=== PATIENT | female | born 1965 | race Caucasian/White ===

== ENCOUNTER 2023-01-17 08:01 | Outpatient (REF) | payer OTHER, SELFPAY ==
--- NOTE | ~2023-01-17 | US_ITS ---
EXAMINATION: US ABDOMEN COMPLETE CLINICAL INFORMATION: Right upper quadrant pain. COMPARISON: CT abdomen and pelvis 08/13/2022. Ultrasound kidneys and bladder 07/26/2022. Ultrasound kidneys 02/18/2022. TECHNIQUE: Real-time imaging of the abdominal viscera. FINDINGS: PANCREAS: Normal. ABDOMINAL AORTA: The proximal, mid, and distal segments are normal in caliber. INFERIOR VENA CAVA: Visualized portions are normal. LIVER: The liver is normal in size. The liver contour is normal. Parenchymal echogenicity is normal. There is no intrahepatic biliary duct dilatation seen. An echogenic mass measuring 1.1 cm is present in the right lobe of the liver consistent with a hemangioma. A 1.1 cm mass in the same location can be seen on the contrast-enhanced CT scan from [facility] performed on 12/20/2021 but it is not apparent on the 08/13/[address] scan. GALLBLADDER: Normal. The gallbladder is physiologically distended without evidence of stones, sludge, polyps, wall thickening or pericholecystic fluid. COMMON BILE DUCT: Normal in caliber measuring 0.5 cm in diameter. RIGHT KIDNEY: No hydronephrosis or focal parenchymal lesions. The kidney measures 9.6 cm in maximum dimension. LEFT KIDNEY: No hydronephrosis or focal parenchymal lesions. The kidney measures 9.8 cm in maximum dimension. There is a 9 mm echogenic focus seen at the lower pole of the left kidney consistent with a nonobstructing stone. 2 calculi were seen on the 08/13/2022 CT scan. SPLEEN: Normal. The spleen measures 9.2 cm in maximum dimension. FREE FLUID: None. US/US abdomen complete IMPRESSION: 1. A cause for the patient's right upper quadrant pain has not been found. 2. Incidentally noted hepatic hemangioma. 3. Nonobstructing left lower pole renal calculus.
== END 2023-01-17 08:02 | disposition home or self-care (01) ==
LOC: HO.US 08:01
PROVIDERS: PCP Physician Assistant; Visit Provider Internal Medicine Gastroenterology
DX: R10.11 Right upper quadrant pain (principal)
CPT/HCPCS: 76700

== ENCOUNTER 2023-01-31 08:47 | Day surgery (SDC) | payer OTHER, SELFPAY ==
--- NOTE | 2023-01-30 10:17 | P.CONAN_ITS ---
Documented by User: Alfreda Richards NP 01/30/23 10:20 HPI - Anesthesia Eval Consult details Narrative: 57yo F for Upper Endoscopy and Colonoscopy [facility] Past Medical History Medical History Colon polyps HTN (hypertension) Kidney stone Migraine Sessile serrated polyp of colon Surgical History Surgical History H/O cystoscopy H/O: hysterectomy History of esophagogastroduodenoscopy (EGD) Hx of appendectomy Hx of tubal ligation Social History Social History Patient Tobacco Use Status: Never used Tobacco Are you DNR?: No Advance Directives: No Advance Directives Information Provided: Yes Nutrition Risks: No Nutritional Risk Meds Allergies Allergy/AdvReac Type Severity Reaction Status Date / Time Penicillins Allergy Unknown Unknown Verified 01/30/23 10:20 Sulfa (Sulfonamide Allergy Unknown Unknown Verified 01/30/23 10:20 Antibiotics) venom-honey bee Allergy Unknown Unknown Verified 01/30/23 10:20 Home Medications Medication Instructions Recorded Confirmed Last Taken Type atorvastatin 10 mg tablet 1 tab PO BEDTIME 01/30/23 01/30/23 Unknown History cetirizine 10 mg tablet 1 tab PO DAILY 01/30/23 01/30/23 Unknown History escitalopram oxalate 20 mg tablet 1 tab PO DAILY 01/30/23 01/30/23 Unknown History famotidine 20 mg tablet 1 tab PO DAILY 01/30/23 01/30/23 Unknown History lisinopril 5 mg tablet 1 tab PO DAILY 01/30/23 01/30/23 Unknown History topiramate 100 mg tablet 1 tab PO BID 01/30/23 01/30/23 Unknown History Exam Exam Date and Time: January 30, 2023 1017 Assessment and Plan Assessment Anesthesia Assessment: Chart Reviewed Documented by User: Kayla Baires MD 01/31/23 09:29 [facility] Past Medical History Medical History Colon polyps HTN (hypertension) Kidney stone Migraine Sessile serrated polyp of colon Functional capacity: independent ambulation Patient : No Family History Family history of problems with anesthesia: No Surgical History Surgical History H/O cystoscopy H/O: hysterectomy History of esophagogastroduodenoscopy (EGD) Hx of appendectomy Hx of tubal ligation History of Problems with Anesthesia: No Social History Social History Patient Tobacco Use Status: Never used Tobacco Are you DNR?: No Advance Directives: No Advance Directives Information Provided: Yes Nutrition Risks: No Nutritional Risk Meds Allergies Allergy/AdvReac Type Severity Reaction Status Date / Time Penicillins Allergy Unknown Unknown Verified 01/30/23 10:20 Sulfa (Sulfonamide Allergy Unknown Unknown Verified 01/30/23 10:20 Antibiotics) venom-honey bee Allergy Unknown Unknown Verified 01/30/23 10:20 Home Medications Medication Instructions Recorded Confirmed Last Taken Type atorvastatin 10 mg tablet 1 tab PO BEDTIME 01/30/23 01/30/23 Unknown History cetirizine 10 mg tablet 1 tab PO DAILY 01/30/23 01/30/23 Unknown History escitalopram oxalate 20 mg tablet 1 tab PO DAILY 01/30/23 01/30/23 Unknown History famotidine 20 mg tablet 1 tab PO DAILY 01/30/23 01/30/23 Unknown History lisinopril 5 mg tablet 1 tab PO DAILY 01/30/23 01/30/23 Unknown History topiramate 100 mg tablet 1 tab PO BID 01/30/23 01/30/23 Unknown History Exam Airway Mallampati Class: II TM Dist: >3cm Neck ROM: Full Heart: RRR Lungs: CTA Assessment and Plan Final Anesthetic Review Family History of Problems with Anesthesia: No History of Problems with Anesthesia: No ASA Class: II Final Preanesthetic Review: No Changes in Pt Med Stat, Meds/Allgs Chart Reviewed, Consent Obtained/Reviewed and Anes Risks/Benef Reviewed Patient Risk: Low Procedure Risk: Low Anesthetic Plan Anesthetic Plan: MAC: Disposition: Standard PACU
[2023-01-31 06:13] VITALS: BMI 28.5
[2023-01-31 09:01] VITALS: BP 138/72; PULSE 78; RESP 20; TEMP 36.1; O2SAT 98
[2023-01-31] MEDS: Lactated Ringers 1,000 ML 100 ML IVCONT (09:18)
--- NOTE | 2023-01-31 09:48 | MHC.SHP ---
Pre-Procedural Eval Section A Date of Service: 01/31/23 Section B Chief Complaint: Right upper quadrant pain,screening Details of Present Illness: see H&P no changes Relevant Family History (Specify if Yes): No Relevant Social History: None Present Medications: see Short Stay Collaborative assessment Medical History: No relevant PMH History of Previous Operations: No relevant previous surgery Allergies: Allergies Allergy/AdvReac Type Severity Reaction Status Date / Time Penicillins Allergy Unknown Unknown Verified 01/30/23 10:20 Sulfa (Sulfonamide Allergy Unknown Unknown Verified 01/30/23 10:20 Antibiotics) venom-honey bee Allergy Unknown Unknown Verified 01/30/23 10:20 Review of Systems Sugical H&P ROS: Negative: Constitution, Cardiovascular, Respiratory, Neurological, Psychiatric, Hem-Onc, Allergic/Immunologic, Gastrointestinal, Genitourinary, Musculoskeletal, Integumentary, Endocrine and Eyes/Ears/Nose/Throat Exam Surgical H&P Exam: Normal: HEENT, Normal: Heart, Normal: Lungs, Normal: Extremities, Normal: Abdomen, Normal: Skin and Normal: Neurological Plan Diagnosis/Plan: Unchanged I have reviewed the history and physical and performed a pertinent physical examination on my patient. No changes have occurred unless specified. Time Spent With Patient Time: Total time managing care of this patient today ____ minutes.
[2023-01-31 10:25] VITALS: BP 118/74; PULSE 76; RESP 16; TEMP 36.4; O2SAT 97
--- NOTE | 2023-01-31 10:29 | P.BOP_ITS ---
Brief Operative Note Date of Service: 01/31/23 Pre-op diagnosis: ruq pain screening Post-op diagnosis: same Procedure: egd colon Surgeon: Les Guajardo Anesthesia: MAC Was an Nuclear Scientist used for this Procedure?: No Estimated blood loss (mL): 2 Pathology: other Condition: stable Disposition: PACU
[2023-01-31 10:40] VITALS: BP 110/70; PULSE 72; RESP 16; TEMP 36.4; O2SAT 96
--- NOTE | 2023-01-31 11:33 | OP_ITS ---
SURGEON: Les Guajardo MD INDICATIONS: Right upper quadrant pain and personal history of colon polyps. PREOPERATIVE DIAGNOSIS: POSTOPERATIVE DIAGNOSIS: PROCEDURE PERFORMED: Upper endoscopy with biopsy, colonoscopy to the terminal ileum with biopsy. ESTIMATED BLOOD LOSS: COMPLICATIONS: ANESTHESIA: ASSISTANTS: SPECIMENS: MEDICATIONS: Monitored anesthesia care. DESCRIPTION OF PROCEDURE: Date:01/31/23. A history and physical was performed. The risks and benefits of the procedure were explained to the patient. Informed consent was obtained. The patient was placed in the left lateral decubitus position. The Olympus video gastroscope was introduced into the esophagus, stomach, and duodenum. Examination was performed. The scope was removed. She was repositioned for colonoscopy. Digital rectal exam was performed, and was found to be normal. The Olympus pediatric video colonoscope was introduced into the rectum and advanced to the cecum without difficulty. The cecum was identified by transillumination, palpation, and identification of the ileocecal valve. Examination was performed. The scope was removed. She tolerated both procedures well and was returned to the recovery area in stable condition. FINDINGS: Upper endoscopy: 1. Esophagus: The esophagus was normal. Biopsies were obtained from the EG junction. There was a small hiatal hernia. 2. Stomach: The stomach showed mild erythema throughout consistent with mild gastritis. No ulcer was identified. Biopsies were obtained from the antrum. 3. Duodenum: The bulb and 2nd portion were normal. Biopsies were obtained to evaluate for celiac disease. Colonoscopy: The terminal ileum was examined and appeared normal. The visualized colonic mucosa was normal. Quality of the prep was good. There was a single polyp measuring less than 5 mm at 70 cm, which was removed with a biopsy forceps. No other polyps were identified. Retroflexed examination showed small internal hemorrhoids. IMPRESSION: Colon polyp, gastritis. RECOMMENDATION: Follow up the biopsy results. MD DAISY Moran/DARIAN / [phone] [facility]
--- NOTE | 2023-01-31 12:50 | HO.POSTANES ---
Post Anesthesia Evaluation Post Anesthesia Evaluation Vital Signs: Vital Signs Temp Pulse Resp BP Pulse Ox O2 Del Method 01/31/23 10:40 97.5 F 72 16 110/70 96 Room Air 01/31/23 10:25 97.5 F 76 16 118/74 97 Room Air 01/31/23 09:01 97 F 78 20 138/72 98 Room Air Anesthesia: Monitored Mental Status: Awake Pain Control: Satisfactory Nausea/Vomiting: None Hydration: Adequate Anesthesia-Related Issues: No Anes. Related Issues
== END 2023-01-31 11:05 | disposition home or self-care (01) ==
PROVIDERS: PCP Physician Assistant; Visit Provider Internal Medicine Gastroenterology
PROC: (CPT 45380; principal; 2023-01-31 09:50)
DX: Z12.11 Encounter for screening for malignant neoplasm of colon (principal); Z86.010 Personal history of colon polyps; D12.4 Benign neoplasm of descending colon; K64.8 Other hemorrhoids; R10.11 Right upper quadrant pain; K29.50 Unspecified chronic gastritis without bleeding; K44.9 Diaphragmatic hernia without obstruction or gangrene; K21.9 Gastro-esophageal reflux disease without esophagitis; N20.0 Calculus of kidney; R53.83 Other fatigue; I10 Essential (primary) hypertension; D18.09 Hemangioma of other sites; G43.909 Migraine, unspecified, not intractable, without status migrainosus; Z79.899 Other long term (current) drug therapy; Z88.0 Allergy status to penicillin; Z88.2 Allergy status to sulfonamides
CPT/HCPCS: 45380; 43239; 88305; 88342